=== PATIENT | male | born 1970 | race Caucasian/White ===

== ENCOUNTER 2020-09-11 02:01 | Emergency (ER) | payer OTHER ==
[~2020-09-11 02:01] MED LIST: ACULAR5 M1 OD; BACTRIM DS TAB1 EACH PO; ILOTYCIN1 GM OU; KEFLEX250 MG PO
== END 2020-09-11 03:00 | disposition home or self-care (01) ==
LOC: FER 02:01
DX: M25.562 Pain in left knee (principal); F17.210 Nicotine dependence, cigarettes, uncomplicated; Z96.652 Presence of left artificial knee joint
CPT/HCPCS: 99283

== ENCOUNTER 2020-11-23 18:13 | Emergency (ER) | payer OTHER ==
[2020-11-23 19:32] LABS: BASOPHIL 0.7 % (0-2); EOSINOPHIL 0.9 % (0-5); HCT 39.5 % (42.0-52.0); HGB 13.5 g/dl (13.2-18.0); LYMPHOCYTE 14.4 % (15-48); MCH 30.2 pg (25.0-31.0); MCHC 34.2 g/dL (32.0-36.0); MCV 88.4 fL (78.0-100.0); MONOCYTE 5.8 % (0-12); MPV 10.8 fL (6.0-9.5); NEUTROPHIL 77.3 % (41-80); NRBC 0; PLT 234 K/uL (150-400); RBC 4.47 M/uL (4.70-6.00); RDW 13.7 % (11.5-14.0)
[2020-11-23 19:48] LABS: ALBUMIN 3.6 g/dL (3.4-5.0); BILIRUBIN - TOTAL 0.6 mg/dL (0.2-1.0); BUN/CREAT RATIO (CALC) 19.6 RATIO; CREATININE 1.02 mg/dL (0.67-1.17); GLOBULIN (CALCULATION) 3.7 g/dL; TOTAL PROTEIN 7.3 g/dL (6.4-8.2)
[2020-11-23] MEDS ORDERED: VIBRAMYCIN100 MG PO (20:16)
[2020-11-23] MEDS ORDERED: CARAFATE1 GM PO (20:16)
[2020-11-23] MEDS ORDERED: CEPHALEXIN500 M1 PO (20:16)
== END 2020-11-23 20:38 | disposition home or self-care (01) ==
LOC: FER 18:13
PROVIDERS: Emergency Medicine Emergency Medical Services
DX: L03.114 Cellulitis of left upper limb (principal); F17.210 Nicotine dependence, cigarettes, uncomplicated; Z86.14 Personal history of Methicillin resistant Staphylococcus aureus infection
CPT/HCPCS: 36415; 80053; 83690; 84145; 85025; 87040; 87339

== ENCOUNTER 2020-12-13 21:24 | Emergency (ER) | payer OTHER ==
[~2020-12-13 21:24] MED LIST changes: +CARAFATE1 GM PO; +CEPHALEXIN500 M1 PO; +VIBRAMYCIN100 MG PO
[2020-12-13] MEDS ORDERED: VIBRAMYCIN100 MG PO (21:56)
== END 2020-12-13 22:08 | disposition home or self-care (01) ==
LOC: FER 21:24
DX: S61.212A Laceration without foreign body of right middle finger without damage to nail, initial encounter (principal); K21.9 Gastro-esophageal reflux disease without esophagitis; F17.210 Nicotine dependence, cigarettes, uncomplicated; Z86.14 Personal history of Methicillin resistant Staphylococcus aureus infection; W45.8XXA Other foreign body or object entering through skin, initial encounter; Y92.89 Other specified places as the place of occurrence of the external cause; Y99.0 Civilian activity done for income or pay
CPT/HCPCS: 99282

== ENCOUNTER 2021-01-22 21:39 | Emergency (ER) | payer OTHER ==
[2021-01-23 01:19] LABS: BASOPHIL 0.7 % (0-2); EOSINOPHIL 2.4 % (0-5); HCT 41.8 % (42.0-52.0); LYMPHOCYTE 19.3 % (15-48); MCH 29.9 pg (25.0-31.0); MCHC 33.5 g/dL (32.0-36.0); MCV 89.1 fL (78.0-100.0); MONOCYTE 5.8 % (0-12); MPV 10.4 fL (6.0-9.5); NEUTROPHIL 70.9 % (41-80); NRBC 0; PLT 214 K/uL (150-400); RBC 4.69 M/uL (4.70-6.00); RDW 13.4 % (11.5-14.0); WBC 11.7 K/uL (4.0-10.5)
[2021-01-23 01:43] LABS: ALBUMIN 3.4 g/dL (3.4-5.0); BILIRUBIN - TOTAL 0.4 mg/dL (0.2-1.0); C-REACTIVE PROTEIN 0.7 mg/dL (<=0.90); CREATININE 0.73 mg/dL (0.67-1.17); GLOBULIN (CALCULATION) 3.4 g/dL; POTASSIUM 3.9 mmol/L (3.5-5.1); TOTAL PROTEIN 6.8 g/dL (6.4-8.2)
[2021-01-23] MEDS ORDERED: VIBRAMYCIN100 MG PO (02:00)
== END 2021-01-23 02:58 | disposition home or self-care (01) ==
LOC: FER 21:39
PROVIDERS: Emergency Medicine Emergency Medical Services
DX: L03.115 Cellulitis of right lower limb (principal); F17.200 Nicotine dependence, unspecified, uncomplicated
CPT/HCPCS: 36415; 80053; 85025; 85379; 86140; J3370; J7050